=== PATIENT | male | born 1930 | race Caucasian/White ===

== ENCOUNTER 2018-01-11 13:32 | Outpatient (CLI) | payer MEDICARE, BC ==
[2018-01-11 14:15] LABS: TOTAL HEMOGLOBIN 15.1 G/dl (14.0-18.0)
== END 2018-01-11 23:59 | disposition home or self-care (01) ==
LOC: RT 13:32
PROVIDERS: ATTEND Internal Medicine Cardiovascular Disease
DX: Z51.81 Encounter for therapeutic drug level monitoring (principal); Z79.899 Other long term (current) drug therapy
CPT/HCPCS: 71046; 85018; 94010; 94727; 94729